=== PATIENT | female | born 1965 | race Caucasian/White ===

== ENCOUNTER 2022-04-29 11:25 | Day surgery (SDC) | payer OTHER ==
[~2022-04-29] VITALS: Ht 162.6 cm; Wt 155.0 kg
[~2022-04-29 11:25] MED LIST: SODIUM CHLORIDE 0.9% 1,000 ML IV ONE; SODIUM CHLORIDE 0.9% 1,000 ML ONE
[2022-04-29 11:52] LABS: COVID AG,FIA SOURCE NASAL SWAB
[2022-04-29] MEDS ORDERED: PROPOFOL 1% 20 ML VIAL IVP ONE (12:00)
[2022-04-29] MEDS ORDERED: LIDOCAINE/PF 2% 5 ML VIAL IM ONE (12:00)
[2022-04-29] MEDS ORDERED: MAGN400T57 PO (12:20)
[2022-04-29] MEDS ORDERED: MONT-35 PO (12:20)
[2022-04-29] MEDS ORDERED: CHOL200059 PO (12:20)
[2022-04-29] MEDS ORDERED: SIMV-261 PO (12:20)
[2022-04-29] MEDS ORDERED: OXYB5TAB20 PO (12:20)
[2022-04-29] MEDS ORDERED: METO50 PO (12:20)
[2022-04-29] MEDS ORDERED: CYAN100T45 PO (12:20)
[2022-04-29] MEDS ORDERED: BECL10.62 IH (12:20)
[2022-04-29] MEDS ORDERED: LISI-894 PO (12:20)
[2022-04-29] MEDS ORDERED: PHEN-846 PO (12:20)
[2022-04-29] MEDS ORDERED: POLY17PO47 PO (12:20)
[2022-04-29] MEDS ORDERED: DULO-114 PO (12:20)
[2022-04-29] MEDS ORDERED: OMEP20 PO (12:20)
[2022-04-29] MEDS ORDERED: LORA10TA7 PO (12:20)
[2022-04-29] MEDS ORDERED: BENZ-70 PO (12:20)
[2022-04-29] MEDS ORDERED: HYDR-4870 PO (12:20)
[2022-04-29] MEDS ORDERED: TOPI25 PO (12:20)
[2022-04-29] MEDS ORDERED: SPIR-37 PO (12:20)
[2022-04-29] MEDS ORDERED: BUSP5TAB20 PO (12:20)
== END 2022-04-29 16:09 | disposition home or self-care (01) ==
LOC: SURGERY 11:25
PROVIDERS: ATTEND Internal Medicine Gastroenterology
DX: Z12.11 Encounter for screening for malignant neoplasm of colon (principal); K64.8 Other hemorrhoids; K29.70 Gastritis, unspecified, without bleeding; K21.9 Gastro-esophageal reflux disease without esophagitis; E66.01 Morbid (severe) obesity due to excess calories; E78.2 Mixed hyperlipidemia; E66.9 Obesity, unspecified; Z90.49 Acquired absence of other specified parts of digestive tract; Z98.890 Other specified postprocedural states; Z82.49 Family history of ischemic heart disease and other diseases of the circulatory system; Z79.899 Other long term (current) drug therapy; Z88.0 Allergy status to penicillin; Z87.891 Personal history of nicotine dependence
CPT/HCPCS: 45378; 43239; 87426; C1769; C9803; J2704; J3490; J7030; 88305; 88312; 88313